=== PATIENT | female | born 1995 | race Caucasian/White ===

== ENCOUNTER → 2018-04-09 | Emergency (ER) | payer BC ==
[2018-04-09 22:14] VITALS: BP 127/77
== END | disposition left against medical advice (07) ==
DX: Z53.21 Procedure and treatment not carried out due to patient leaving prior to being seen by health care provider (principal)

== ENCOUNTER → 2018-10-15 | Outpatient (CLI) | payer BC | LOC: BMCIMAGING 09:03 | PROVIDERS: ATTEND Family Medicine | DX: S59.902A Unspecified injury of left elbow, initial encounter (principal) ==